=== PATIENT | female | born 1985 | race Caucasian/White ===

== ENCOUNTER 2021-06-12 13:10 | Emergency (ER) | payer MEDICAID, SELFPAY ==
[2021-06-12] VITALS (8 sets, daily range): BP systolic 115–126; BP diastolic 74–92; PULSE 74–97; RESP 16–20; TEMP 36.6; O2SAT 97–100; BMI 21.9
[2021-06-12 13:57] LABS: Absolute Lymphocyte Count 2.37 X10^3/uL (0.83-4.51); Absolute Neutrophil Count 5.8 X10^3/uL (2.0-7.7); Basophil# 0.06 X10^3/uL; Basophil% 0.6 % (0-1); Eosinophil# 0.18 X10^3/uL; Eosinophils% 1.9 % (0-5); Hematocrit 39.3 % (37-47); Hemoglobin 13.1 g/dL (12.0-15.0); Lymphocyte # 2.37 X10^3/ul (0.83-4.51); Lymphocyte % 25.6 % (19-41); Mean Corp Hgb Conc 33.3 g/dL (32-36); Mean Corpuscular Hgb 30.5 pg (27.0-32.0); Mean Corpuscular Volume 91.4 fL (81-99); Mean Platelet Vol. 9.9 fl (6.2-12.0); Monocyte# 0.78 X10^3/uL; Monocyte% 8.4 % (0-10); NRBC Flagged by Analyzer 0 % (0-5); Neutrophil # 5.83 X10^3/uL (2.7-7.7); Neutrophil % 63.3 % (47-70); Platelet Count 282 K/mm3 (150-450); RBC Distribution Width CV 13.2 % (11.6-14.6); RBC Distribution Width SD 44.9 fl (35.1-43.9); White Blood Count 9.2 K/mm3 (4.4-11.0)
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
[2021-06-12 14:09] LABS: Amphetamine Urine VISTA POSITIVE (<1000 ng/mL); Barbiturate Urine VISTA NEGATIVE (< 200 ng/mL); Benzodiazepine Urine VISTA NEGATIVE (< 200 ng/mL); Cocaine Urine VISTA NEGATIVE (< 300 ng/mL); Ecstacy Urine VISTA POSITIVE (< 500 ng/mL); Methadone Urine VISTA NEGATIVE (< 300 ng/mL); PCP Urine VISTA NEGATIVE (< 25 ng/mL); THC Urine VISTA POSITIVE (< 50 ng/mL); Vista UDS pH Range 6
[2021-06-12 14:10] LABS: Internal QC Validated? YES +Cl - CLEAR BKGD; Pregnancy, Serum, hCG Quali. NEGATIVE Negative
[2021-06-12 14:12] LABS: Alcohol, Blood (Medical)-Serum < 3.0 mg/dL
[2021-06-12 14:14] LABS: Anion Gap 4 (5-15); BUN 17 mg/dL (7-18); BUN/Creat Ratio 23.1 RATIO (10-20); Calcium,Total 8.4 mg/dL (8.5-10.1); Chloride 107 mmol/L (98-107); Creatinine, Serum 0.74 mg/dL (0.55-1.02); EST Glomerular Filtration Rate 96 mL/min (>60); Est Glom Filt Rate - Afr Amer 117 mL/min (>60); Estimated Creatinine Clearance 85.52 ml/min; Glucose 83 mg/dL (74-106); Potassium 3.8 mmol/L (3.5-5.1); Sodium Level 139 mmol/L (136-145)
--- NOTE | 2021-06-12 14:25 | RAD_ITS ---
STUDY: X-RAY CHEST REASON FOR EXAM: Female, 35 years old. Trauma reported TECHNIQUE: Single AP portable view of the chest. COMPARISON: None. FINDINGS: The lungs are clear and expanded. There is no demonstrated pleural abnormality. Normal size heart. Normal mediastinum and tanesha. Normal visualized pulmonary arteries. Normal visualized aortic arch and descending thoracic aorta. There is a levoscoliosis of the thoracic spine. Normal visualized ribs, clavicles, and shoulders. There is no demonstrated abnormality of the visualized soft tissue structures of the upper abdomen. RAD/Chest 1 View (Portable) IMPRESSION: Levoscoliosis. The lungs are clear. Electronically Signed: Thomas Santo MD at 14:38 EST ,
--- NOTE | 2021-06-12 14:38 | ED.RN ---
PD IN UNIT AND PT WITH INCREASED AGGITATION AFTER BEING UP TO USE BATHROOM. PT BACK TO ROOM AND ATTEMPTED TO REORIENT.
[2021-06-12] MEDS: LORazepam 1 MG Tablet PO ×2 (15:01→16:48)
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
--- NOTE | 2021-06-12 17:11 | CM.ED ---
Social Work Telephone call to [facility], intake. Referral made. There are open beds. Clinical information faxed. Will continue to follow. Carolyne NAZARIO, MONIQUE
--- NOTE | 2021-06-12 18:58 | CM.ED ---
Social Work Telephone call to [facility]. Laurie confirms to have received referral and it is in review. Will continue to follow. Carolyne Uribe MSW, RICCIS
--- NOTE | 2021-06-12 19:18 | CM.ED ---
Social Work Telephone call from [facility], patient accepted by Dr. Sotelo to the DDX unit. Nurse to call report to [phone]. [place] slip faxed. Medical team and patient updated on above. PLAN: Discharge to [facility] Social work to follow if needed. Carolyne NAZARIO, MONIQUE
--- NOTE | 2021-06-12 19:30 | ED.RN ---
CALLED [facility], THE ETA IS GOING TO BE MIDNIGHT DUE TO THE CURRENT ONE WE JUST SENT OUT
--- NOTE | 2021-06-12 23:34 | ED.RN ---
THE [facility] WAS SUPPOSE TO BE AT MIDNIGHT, BUT THEY HAVE NOW PUSHED THIS BACK TO THE ONE CREW THAT WE HAVE NOW. THEY WILL BE BACK FOR THIS PERSON UNTIL SHIPPING CLERK CRATING
[2021-06-13] VITALS: BP 104/60; PULSE 87; RESP 18
[2021-06-13 01:00] VITALS: RESP 18
[2021-06-13 02:00] VITALS: RESP 18
[2021-06-13 03:00] VITALS: RESP 18
--- NOTE | 2021-06-13 04:14 | NURSING ---
REPORT GIVEN TO [facility] AND [facility] AT [facility].
== END 2021-06-13 04:00 ==
PROVIDERS: Emergency Provider Emergency Medicine; Visit Provider Emergency Medicine
DX: R45.851 Suicidal ideations (principal); F15.10 Other stimulant abuse, uncomplicated; F22 Delusional disorders; Z59.00 Homelessness unspecified; F17.210 Nicotine dependence, cigarettes, uncomplicated
CPT/HCPCS: 71045; 80048; 80307; 82077; 84703; 85025; 87426; 99282